=== PATIENT | female | born 1945 | race African-American/Black ===

== ENCOUNTER → 2018-12-13 | Outpatient (CLI) | payer OTHER ==
[~2018-12-13] MED LIST: ALTACE10 M1 PO; AMARYL4 MG PO; COZAAR 50 MG TA50 M2 PO; GLUCOPHAGE500 MG PO; GLUCOSAMINE1000 MG PO; INTEGRA F CAPS1 EACH PO; JANUVIA100 MG PO; LEVEMIR SUBQ; METOCLOPRAMIDE 55 M1 PO; NOVOLOG100 UNIT/1 SUBQ; OMEPRAZOLE40 MG PO; OPTIFLEX-C400 MG PO; SIMVASTATIN20 MG PO; VITAMIN D400 UNI1 PO; VITAMINC500 PO
== END ==
LOC: NUC 08:18
DX: R07.1 Chest pain on breathing (principal); R94.39 Abnormal result of other cardiovascular function study; R55 Syncope and collapse; I10 Essential (primary) hypertension; E78.5 Hyperlipidemia, unspecified; E11.9 Type 2 diabetes mellitus without complications; Z79.4 Long term (current) use of insulin

== ENCOUNTER 2019-10-20 22:30 | Inpatient (IN) | payer OTHER ==
[~2019-10-20] VITALS: Ht 162.6 cm; Wt 70.0 kg
[~2019-10-20 22:30] MED LIST changes: +COZAAR 50 MG TA50 M1 PO; -COZAAR 50 MG TA50 M2 PO
[2019-10-20 22:31] VITALS: BP 174/84
[2019-10-20 23:09] LABS: URINE BILIRUBIN NEGATIVE (Negative); URINE BLOOD NEGATIVE (Negative); URINE CLARITY CLEAR; URINE COLOR YELLOW; URINE GLUCOSE-RANDOM* 3+ (Negative); URINE KETONES NEGATIVE (Negative); URINE LEUKOCYTES-REFLEX NEGATIVE (Negative); URINE NITRITE-REFLEX NEGATIVE (Negative); URINE PROTEIN (DIPSTICK) NEGATIVE (Negative); URINE SPECIFIC GRAVITY 1.015 (1.005-1.035); URINE UROBILINOGEN 0.2 E.U./dl (0.2-1.0)
[2019-10-20 23:24] LABS: MCV 91.9 fL (80.0-100.0)
[2019-10-20 23:25] LABS: ABSOLUTE NEUTROPHILS 4.7 thou/uL (1.4-8.2); BASOPHILS 0.9 % (0.0-2.0); EOSINOPHILS 1.3 % (0.0-3.0); HEMATOCRIT 33.5 % (37.0-47.0); HEMOGLOBIN 10.7 gm/dL (12.0-15.0); LYMPHOCYTES 22.7 % (24.0-44.0); MCH 29.3 pg (26.0-34.0); MCHC 31.9 g/dL (28.0-37.0); MONOCYTES 8.3 % (1.0-8.0); PLATELET COUNT 275 thou/uL (150-400); POLYS 66.8 % (36.0-66.0); RBC 3.64 mil/uL (4.20-5.00); RDW 13.2 % (10.5-14.5)
[2019-10-21] VITALS (7 sets, daily range): BP systolic 132–164; BP diastolic 56–85
[2019-10-21 00:08] LABS: ANION GAP 6 mmol/L (7-16); BUN 30 mg/dL (7-18); CALCIUM 8.4 mg/dL (8.5-10.1); CHLORIDE 103 mmol/L (98-107); CO2 24 mmol/L (21-32); CREATININE 1.4 mg/dL (0.6-1.0); GLUCOSE 286 mg/dL (74-106); SODIUM 133 mmol/L (136-145)
[2019-10-21 00:19] LABS: ALBUMIN 3.2 g/dL (3.4-5.0); LIPASE 168 U/L (73-393); PHOSPHORUS < 0.1 mg/dL (2.5-4.9); SGOT 13 U/L (15-37); SGPT 17 U/L (30-65); TOTAL BILIRUBIN 0.3 mg/dL (<0.1-1.0); TOTAL PROTEIN 6.9 g/dL (6.4-8.2); TROPONIN-I 0.23 ng/mL (<0.06)
[2019-10-21 01:04] LABS: MAGNESIUM 1.8 mg/dL (1.8-2.4)
[2019-10-21] MEDS ORDERED: LEVEMIR FL100 UNIT/2 SUBQ (02:06)
[2019-10-21] MEDS ORDERED: NOVOLOG100 UNIT/1 SUBQ (03:00)
--- NOTE | 2019-10-21 04:46 | NUR ---
RECEIVED REPORT FROM ER NURSE. PT ADMITTED TO CCU. ADMISSION HX AND ASSESSMENT COMPLETED CHARTED. PT C/O FEELING LIKE HER LEGS ARE GOING TO HAVE CRAMPS AGAIN, BUT SHE STATED OVERALL SHE FEELS MUCH BETTER THAN WHEN SHE INTIALLY ARRIVED TO THE ER. VSS. UP W/ SBA TO BTR. IVF INFUSING ORDERED. FALL PRECAUTIONS IN PLACE. PROGRESSING SLOWLY TOWARD POC GOALS.
[2019-10-21 07:07] LABS: HEMATOCRIT 30.8 % (37.0-47.0); HEMOGLOBIN 10.1 gm/dL (12.0-15.0); MCH 30.1 pg (26.0-34.0); MCHC 32.9 g/dL (28.0-37.0); MCV 91.6 fL (80.0-100.0); RBC 3.36 mil/uL (4.20-5.00); RDW 12.7 % (10.5-14.5); WBC 7.8 thou/uL (4.0-11.0)
[2019-10-21 07:18] LABS: ANION GAP 7 mmol/L (7-16); BUN 26 mg/dL (7-18); CALCIUM 8.6 mg/dL (8.5-10.1); CHLORIDE 103 mmol/L (98-107); CHOLESTEROL 131 mg/dL (<200); CO2 25 mmol/L (21-32); CREATININE 1.4 mg/dL (0.6-1.0); GLUCOSE 345 mg/dL (74-106); HDL CHOLESTEROL 52 mg/dL (>40); LDL CHOLESTEROL 69 mg/dL (<100); SODIUM 135 mmol/L (136-145); TC:HDL 2.5 Ratio (Not establshd); TRIGLYCERIDE 53 mg/dL (<150); VLDL 11 mg/dL (<40)
[2019-10-21 07:19] LABS: POTASSIUM 4.3 mmol/L (3.5-5.1)
--- NOTE | 2019-10-21 08:14 | EKG ---
[address] [place] [address] ELECTROCARDIOGRAM REPORT Name: JOSSY HICKMAN Room #: 200-I [facility]..#: [id number] Admission: 10/21/19 Attend Phys: Zoey Fong Discharge: Date of : 41 Report #: [id number] THIS REPORT FOR: //name// [facility] ED Test Date: 2019-10-20 Test Time: 22:55:07 Pat Name: JOSSY HICKMAN Department: Room: 200 Gender: F Campus Ambassador: ABHIJEET : 1945 Requested By: Anmol Ramos Order Number: [id number] MD: Anuj Quiroga Measurements Intervals [place] Rate: 89 P: 53 GA: 197 QRS: 10 QRSD: 80 T: 61 QT: 357 QTc: 435 Interpretive Statements Sinus rhythm Abnormal R-wave progression, early transition Compared to ECG 06/20/2000 11:02:41 No significant changes Electronically Signed On 10-21-2019 8:14:06 METAL TILE LATHER by Anuj Quiroga [email or web address] <ELECTRONICALLY SIGNED> By: Anuj Quiroga MD 10/21/19 0814 2255 Anuj Quiroga MD /ЮЛИЯ
--- NOTE | 2019-10-21 13:15 | 2DMMODE ---
[facility] [address] [place] [address] 2 D/M-MODE ECHOCARDIOGRAM Name: JOSSY HICKMAN Room #: 200-I ADM IN M.R.#: [id number] Admission: 10/21/19 Attend Phys: Zoey Mcdaniel Discharge: Date of : 41 Report #: [id number] THIS REPORT FOR: //name// APPROVED REPORT Study performed: 10/21/2019 09:52:01 EXAM: Comprehensive 2D, Doppler, and color-flow Echocardiogram Patient Location: Bedside Room #: 200 Status: routine BSA: 1.76 HR: 81 bpm BP: 154/70 mmHg Rhythm: NSR Other Information Study Quality: Adequate Risk Factors: Cardiac Risk Factors: HTN, Hyperlipidemia, DM Indications Elevated Troponin 2D Dimensions IVSd: 7.80 (7-11mm) LVOT Diam: 19.00 (18-24mm) LVDd: 35.76 mm PWd: 8.37 (7-11mm) Ascending Ao: 24.35 (22-36mm) LVDs: 27.52 (25-40mm) Aortic Root: 24.22 mm LV Single Plane 4CH: 64.50 % LV Single Plane 2CH: 62.18 % Biplane EF: 61.1 % Volumes Left Atrial Volume (Systole) Single Plane 4CH: 25.72 mL Single Plane 2CH: 42.74 mL LA ESV Index: 21.00 mL/m2 Aortic Valve AoV Peak Ronaldo.: 1.49 m/s AO Peak Gr.: 8.89 mmHg LVOT Max P.30 mmHg LVOT Max V: 1.15 m/s AMI Vmax: 2.09 cm2 [facility] [address] [place] [address] 2 D/M-MODE ECHOCARDIOGRAM Name: JOSSY HICKMAN Room #: 200-I [facility] IN [facility]#: [id number] Admission: 10/21/19 Attend Phys: Zoey Matthews Mar Discharge: Date of : 41 Report #: [id number] Vmax: 3.07 m/s AI Morris: 0.68 m/s2 AI PHT: 1299.81 ms Mitral Valve E/A Ratio: 0.8 MV Decel. Time: 234.14 ms MV E Max Ronaldo.: 0.97 m/s MV A Ronaldo.: 1.20 m/s MV PHT: 67.90 ms IVRT: 69.20 ms TDI E/Lateral E': 13.86 E/Medial E': 13.86 Medial E' Ronaldo.: 0.07 m/s Lateral E' Ronaldo.: 0.07 m/s Pulmonary Valve PV Peak Ronaldo.: 0.83 m/s PV Peak Gr.: 2.73 mmHg Pulmonary Vein P Vein S: 0.61 m/s P Vein A: 0.30 m/s P Vein D: 0.27 m/s P Vein A Dur.: 90.0 msec P Vein S/D Ratio: 2.26 Tricuspid Valve RAP Estimate: 7.00 mmHg Left Ventricle The left ventricle is normal size. There is normal LV segmental wall motion. There is normal left ventricular wall thickness. Left ventricular systolic function is normal. The left ventricular ejection fraction is within the normal range. LVEF is 60%. Mild diastolic dysfunction is present (impaired relaxation pattern). Right Ventricle The right ventricle is normal size. The right ventricular systolic function is normal. Atria The left atrium size is normal. The right atrium size is normal. Aortic Valve The aortic valve is mildly sclerotic Mild aortic regurgitation. There [facility] [address] [place] [address] 2 D/M-MODE ECHOCARDIOGRAM Name: MARYLOUARMICHAEL Room #: 200-I [facility] IN M.R.#: [id number] Admission: 10/21/19 Attend Phys: Zoey Mcdaniel Discharge: Date of : 41 Report #: [id number] is no aortic valvular stenosis. Mitral Valve The mitral valve is normal in structure. There is no mitral valve regurgitation noted. No evidence of mitral valve stenosis. Tricuspid Valve The tricuspid valve is normal in structure. Trace tricuspid regurgitation. Unable to assess PA pressure. Pulmonic Valve The pulmonary valve is normal in structure. There is no pulmonic valvular regurgitation. Great Vessels The aortic root is normal in size. The ascending aorta is normal in size. IVC is normal in size and collapses >50% with inspiration. Pericardium There is no pericardial effusion. <Conclusion> Left ventricular systolic function is normal. There is normal LV segmental wall motion. LVEF is 60%. Mild diastolic dysfunction The aortic valve is mildly sclerotic. Mild aortic regurgitation, no stenosis. The mitral valve is normal in structure. No mitral valve regurgitation. Unable to assess pulmonary artery pressure. There is no pericardial effusion. <ELECTRONICALLY SIGNED> By: Willi Andrews MD, FACC 10/21/19 1314 1314 1314 Willi Andrews MD, FACC /INF
[2019-10-21 14:00] LABS: CALCIUM 8.9 mg/dL (8.5-10.1); CREATININE 1.4 mg/dL (0.6-1.0); MAGNESIUM 1.8 mg/dL (1.8-2.4); PHOSPHORUS 3.1 mg/dL (2.5-4.9); POTASSIUM 4.3 mmol/L (3.5-5.1)
--- NOTE | 2019-10-21 16:45 | NUR ---
PT ALERT AND ORIENTED. VSS. DENIED HAVING PAIN OR DISCOMFORT. EVALUATED BY PT. AMBUALTED X3 IN THE HALLWAY THIS SHIFT. NPO AFTER MIDNIGHT FOR CARDIAC CATH IN AM. CONSENT SIGNED. WILL CONTINUE TO MONITOR.
[2019-10-22] VITALS (15 sets, daily range): BP systolic 67–152; BP diastolic 28–76
[2019-10-22 00:08] LABS: GLYCOHEMOGLOBIN (HGB A1C) 11.5 % (4.8-5.6)
[2019-10-22 04:43] LABS: CALCIUM 9.2 mg/dL (8.5-10.1); CREATININE 1.3 mg/dL (0.6-1.0); POTASSIUM 4.5 mmol/L (3.5-5.1)
--- NOTE | 2019-10-22 04:59 | NUR ---
ASSUMED PT CARE AROUND 1900. PT VSS AND ZERO C/O PAIN, N/V/D. PT UP ADLIB IN ROOM TO TOILET. PT HAS BEEN NPO SINCE MIDNIGHT FOR CATH PROCEDURE 10/22. PT DID NOT SLEEP VERY WELL THRU NIGHT SHE STATED "HER MIND WON'T SHUTDOWN FROM THINKING ABOUT WHAT'S GOING TO HAPPEN" WILL CONTINUE TO MONITOR PT PER POC.
--- NOTE | 2019-10-22 08:40 | HC ---
[facility] [place] [address] CONSULTATION Name: JOSSY HICKMAN Room #: 200-I ADM IN M.R.#: [id number] Admission: 10/21/19 Attend Phys: Asher Steen MD Discharge: Date of : 41 Report #: [id number] THIS REPORT FOR: //name// CC: Zoey Barrientos DATE OF SERVICE: 10/21/2019 ENDOCRINE CONSULTATION NOTE REASON FOR CONSULTATION: Uncontrolled type 2 diabetes mellitus. CONSULTING PHYSICIAN: Dr. Steen. HISTORY OF PRESENT ILLNESS: This is a 74-year-old female patient whose medical background is significant for multiple medical issues including type 2 diabetes mellitus as well as hypertension and hyperlipidemia. The patient presented yesterday late night to the Emergency Department with complaints of diffuse progressive and severe muscle cramps involving her legs, arms, and later on, abdomen and back. The patient was later admitted for further care and monitoring, especially when she was noted to have an elevated potassium of 6 and a slightly elevated troponin as well. The patient notes that she has had longstanding history of type 2 diabetes mellitus and that she is now maintained on insulin therapy, namely utilizing Levemir insulin 20 units q.p.m. in addition to NovoLog insulin taking doses of 17 units t.i.d. a.c. The patient notes that her blood glucose values fluctuate quite widely and that they could get as high as 300 mg/dL, but occasionally be in the low 100s and occasionally in the hypoglycemic range as well. The patient is not aware of issues pertaining to diabetic retinopathy, but she has intermittent issues with diabetic neuropathy. She did not acknowledge having chronic kidney disease that she knows of. She does not have a prior history of CAD. REVIEW OF SYSTEMS: CONSTITUTIONAL: Fatigue, tiredness, but no fever or chills. No major weight changes. HEENT: Negative for sore throat, sinus pain, and ear drainage. PULMONARY: Occasional shortness of breath and cough, but no hemoptysis. CARDIAC: No chest pain, palpitations, syncope or presyncope. GASTROINTESTINAL: Abdominal discomfort, nausea, but no vomiting or major changes in bowel movement frequency. NEUROLOGY: Lightheadedness, dizziness, but no seizure activity or loss of consciousness. MUSCULOSKELETAL: Muscle cramps, diffuse involving both upper and lower extremities as well as back and abdomen. [address] [address] CONSULTATION Name: JOSSY HICKMAN Room #: 200-I ADM IN M.R.#: [id number] Admission: 10/21/19 Attend Phys: Asher Steen MD Discharge: Date of : 41 Report #: [id number] DERMATOLOGY: Negative for ulceration, discoloration rash, or other major changes. PSYCHIATRIC: Negative for delusions or hallucinations. Otherwise, review of systems noncontributory unless mentioned in HPI. PAST MEDICAL HISTORY: 1. Type 2 diabetes mellitus. 2. Hyperlipidemia. 3. Hypertension. 4. Gastroesophageal reflux disease. 5. Anemia. OUTPATIENT MEDICATIONS: 1. Simvastatin. 2. Glucosamine. 3. Omeprazole. 4. Losartan 50 mg daily. 5. NovoLog insulin 11, 17, 11 units before meals. 6. Levemir insulin 20 units q.p.m. 7. Vitamin D 1000 units daily. 8. Iron supplement daily. PAST SURGICAL HISTORY: Rotator cuff surgery and hysterectomy. ALLERGIES: SULFA. FAMILY HISTORY: Noncontributory. SOCIAL HISTORY: The patient denies use of tobacco, alcohol, or illicit drugs. She lives with her . PHYSICAL EXAMINATION: GENERAL: Pleasant -Honduran female patient who is not in apparent pain or distress, sitting comfortably in her reclining chair. VITAL SIGNS: Blood pressure is 132/56 mmHg, heart rate is 78 beats per minute, respirations 17 per minute, temperature 36.7 degrees. CONSTITUTIONAL: The patient appears comfortable, not in apparent distress. HEENT: Anicteric sclerae. Intact extraocular motions. NECK: Supple, without JVD, carotid bruits or lymphadenopathy. I do not appreciate thyromegaly. CHEST: Noted for moderate air entry bilaterally with scattered rales. HEART: Regular rate and rhythm without murmurs or gallops. ABDOMEN: Soft and lax without tenderness. No guarding. Active bowel sounds. LOWER EXTREMITY EXAM: Negative for ankle edema. The patient has good pedal pulses bilaterally. NEUROLOGIC: Awake, alert and oriented to time, place and person. The remainder [address] [address] CONSULTATION Name: JOSSY HICKMAN Room #: 200-I ADM IN M.R.#: [id number] Admission: 10/21/19 Attend Phys: Asher Steen MD Discharge: Date of : 41 Report #: [id number] of examination is nonfocal other than for slight sensory deficits over both feet. PSYCH: Awake, alert, and oriented, pleasant. Normal mood and affect. LABORATORY DATA: Blood glucose on arrival was 323 mg/dL went to 211 and then shortly prior to this dictation, 116 mg/dL. Otherwise, sodium 143, potassium 4.3, chloride 107, CO2 of 26, anion gap 10, BUN 22, creatinine 1.4, lipase 168, total bilirubin 0.3, calcium 8.9, phosphorus 3.1, magnesium 1.8, alkaline phosphatase 117, ALT 17, total protein 6.9, EGFR of 44. Lactic acid 1.7. Total cholesterol 131, triglycerides 53, HDL 52, LDL 69. BNP 91. White blood count 7.8, hemoglobin 10.1, hematocrit 30.8, platelets 265. TSH 1.606. Hemoglobin A1c has been ordered, but is pending. ASSESSMENT AND PLAN: 1. Type 2 diabetes mellitus. As noted above, the patient has a longstanding history of type 2 diabetes mellitus. She has historically dealt with widely fluctuating blood glucose values up until recently. It does not appear that the patient has much in terms of severe diabetic complications, but the current laboratory studies suggest an outlook of chronic kidney disease stage 3, also she has peripheral neuropathy. 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 It is noticeable that the patient presented under conditions of hyperglycemia, but that without having received her usual Levemir dose as she had dropped her blood glucose into the low 100s LDH with the assistance of Humalog supplemental scale coverage. Due to the anticipated limitation of food intake, comfort to her home environment, I will start the patient off with a little lower than usual insulin dose. Namely, I will start the patient on Lantus insulin 14 units q.p.m., in addition to 5 units of Humalog with meals with the supportive Humalog supplemental scale low intensity. I will maintain blood glucose monitoring a.c. and at bedtime and utilizes a blood glucose data to adjust her insulin regimen as needed going forward. A hemoglobin A1c has been ordered and is pending and will certainly help shed more light on her recent level of control. 2. Hyperlipidemia. As per the patient's recently obtained lipid panel, she has been under adequate control. She has been placed on atorvastatin 40 mg at bedtime. I will have her continue with the same. 3. Hypertension. The patient's level of blood pressure control seems to be adequate under the current regimen, she is to continue with the same. [address] [address] CONSULTATION Name: JOSSY HICKMAN Room #: 200-I ADM IN M.R.#: [id number] Admission: 10/21/19 Attend Phys: Asher Steen MD Discharge: Date of : 41 Report #: [id number] I certainly appreciate this consultation by Dr. Steen. <ELECTRONICALLY SIGNED> By: Mine Farrar MD 10/22/19 0840 1708 2238 Mine Farrar MD /nt
[2019-10-22 08:53] LABS: MAGNESIUM 1.7 mg/dL (1.8-2.4); PHOSPHORUS 3.1 mg/dL (2.5-4.9)
--- NOTE | 2019-10-22 10:18 | CATHLAB ---
[place] [address] [facility] [place] [address] INVASIVE PROCEDURE REPORT Name: JOSSY HICKMAN Room #: 200-I ADM IN [facility]#: [id number] Admission: 10/21/19 Attend Phys: Asher Steen, Discharge: Date of : 41 Report #: [id number] THIS REPORT FOR: //name// APPROVED REPORT Study performed: 10/22/2019 07:49:18 Patient Details Patient Status: In-Patient Room #: The patient is a 74 year-old female Event Personnel Toby Killian Softlines Supervisor, Kamila Stern RTR Scrub, Janice Cunningham RTR Scroli, Leonardo Davison personal service workers Performed Left Heart Cath w/or w/o Coronaries [id number] [facility] Indication Non-STEMI , Dyspnea, Chest pain Risk Factors Hypercholesterolemia, Hypertension, Diabetes Procedure Narrative The Right Groin^ was infiltrated with 1% Lidocaine subcutaneous anesthesia. A PINNACLE 4FR Sheath #[id number] sheath was inserted into the RFA^. Coronary angiography was performed using coronary diagnostic catheters. The right coronary system was accessed and visualized with a JR4 catheter. The left coronary system was accessed and visualized with a JL4 catheter. Left ventricular/Aortic Valve gradient assessed via catheter pullback. Hemostasis was obtained with manual pressure following sheath removal without any complications. The patient tolerated the procedure well and there were no complications associated with the procedure. There was no hematoma. Intraoperative Conscious Sedation Sedation start time: 8.00 Case end Time: 8.34 Fentanyl 50 mcg Versed 1 mg Fluoro Time: 2.7 minutes Dose: DAP 2374 cGycm2 656 mGy [facility] [address] [place] [address] INVASIVE PROCEDURE REPORT Name: JOSSY HICKMAN Room #: 200-I ADM IN [facility].#: [id number] Admission: 10/21/19 Attend Phys: Asher Steen, Discharge: Date of : 41 Report #: [id number] Coronary Angiography The patient's coronary anatomy is right dominant. Diagnostic Cath Left Main There is a mild to moderate stenosis in the distal left main, just before the bifurcation. Approximately 30-50%. LAD This is a moderate size caliber vessel, traversing the anterior wall and wrapping around the apex. There is a moderate stenosis in the mid segment, 40%. Diagonal 1 This is a small-caliber vessel, with a moderate stenosis at the ostium, 40%. Circumflex There is a severe occlusion in the mid segment, 70-80%. OM1 This is a moderate size caliber vessel with a high takeoff from the left circumflex artery. There is a moderate stenosis in the proximal segment, 40%. OM2 This is a small-caliber vessel with moderate diffuse disease proximally. OM3 This is a patent vessel, with no flow-limiting lesions. Right Coronary This is a dominant vessel with mild disease in the midsegment, 30%. R PDA This is a small-caliber vessel, patent with no flow-limiting lesions. RPLV This is a small-caliber vessel, patent with no flow-limiting lesions. Left Ventriculography Left Ventriculography was not performed. Ejection Fraction was >55% based off patient's Echocardiogram. An LVEDP was measured and there is no gradient across the outflow tract. Hemodynamics The aortic pressure is 192/84 mmHg with a mean of 127 mmHg. The left ventricular pressure is 191/17 mmHg with a mean of mmHg. The left ventricular end diastolic pressure is 22 mmHg. There was no gradient across the aortic valve upon pullback. Pullback from the left ventricle to the aorta revealed no gradient across the aortic valve. Conclusion 1. There is mild to moderate disease in the left main, LAD and RCA. 2. There is a severe focal stenosis in the mid left circumflex artery. Recommend medical therapy. 3. Normal LV systolic function. [facility] [address] [place] [address] INVASIVE PROCEDURE REPORT Name: JOSSY HICKMAN Room #: 200-I ADM IN M.R.#: [id number] Admission: 10/21/19 Attend Phys: Asher Steen, Discharge: Date of : 41 Report #: [id number] 4. Recommend guideline directed medical therapy and risk factor management. <ELECTRONICALLY SIGNED> By: Toby Killian MD 10/22/19 1018 1018 1018 Toby Killian MD /INF
[2019-10-22] MEDS ORDERED: ASPIR 8181 MG PO (13:23)
[2019-10-22] MEDS ORDERED: TYLENOL325 MG PO (13:23)
[2019-10-22] MEDS ORDERED: METOPROLOL SUCC50 MG PO (13:23)
[2019-10-22] MEDS ORDERED: NOVOLOG100 UNIT/1 SUBQ (13:28)
--- NOTE | 2019-10-22 13:47 | NUR ---
Met with patient, spouse at bedside. Patient tearful she wants to return home but she is hypotensive. Patient reports she lives with spouse in independent home with steps to enter and inside. 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 Patient anticipates dc home once stable. Possible HH care. PCP Dr Ele Barrientos.
[2019-10-22 14:45] LABS: ABSOLUTE NEUTROPHILS 3.8 thou/uL (1.4-8.2); BASOPHILS 1.3 % (0.0-2.0); EOSINOPHILS 1.4 % (0.0-3.0); HEMATOCRIT 28.4 % (37.0-47.0); HEMOGLOBIN 9.3 gm/dL (12.0-15.0); LYMPHOCYTES 33.8 % (24.0-44.0); MCH 29.7 pg (26.0-34.0); MCHC 32.6 g/dL (28.0-37.0); MCV 91.1 fL (80.0-100.0); PLATELET COUNT 243 thou/uL (150-400); POLYS 55.5 % (36.0-66.0); RBC 3.12 mil/uL (4.20-5.00); RDW 12.8 % (10.5-14.5); WBC 6.8 thou/uL (4.0-11.0)
--- NOTE | 2019-10-22 17:32 | NUR ---
ASSESSMENT CHARTED. PT ALERT AND ORIENTED. PT HAD CARDIAC CATH THIS AM. RIGHT GROIN INCISION C/D/I. NO HEMATOMA NOTED. REPORT FEELING DIZZY WITH WALKING. DR. CALVO AND DR. NGUYEN NOTIFIED. WILL CONTINUE TO MONITOR.
--- NOTE | 2019-10-23 03:06 | NUR ---
ASSESSMENTS CHARTED. MEDS GIVEN CHARTED. TOOK OVER CARE OF PATIENT AT 2300. PATIENT RESTING IN ROOM. WAS WOKEN UP FROM SLEEP BY PAIN IN LEFT SHOULDER. MED GIVEN CHARTED. PATIENT WENT TO THE MANAGER REGISTRATION EARLIER, NO INTERVENTIONS WERE DONE. RIGHT GROIN SITE IS SOFT AND INTACT. PLAN OF CARE IS TO ADJUST CARDIAC MEDS DUE TO SYNCOPE. PATIENT MAY GO HOME IN AM AND FOLLOW UP AN OUTPATIENT.
[2019-10-23 05:01] VITALS: BP 122/46
[2019-10-23 05:30] LABS: CALCIUM 9.2 mg/dL (8.5-10.1); CREATININE 1.6 mg/dL (0.6-1.0); MAGNESIUM 1.7 mg/dL (1.8-2.4); POTASSIUM 4.3 mmol/L (3.5-5.1)
[2019-10-23 05:37] LABS: ABSOLUTE NEUTROPHILS 3.9 thou/uL (1.4-8.2); BASOPHILS 0.8 % (0.0-2.0); HEMATOCRIT 28.2 % (37.0-47.0); HEMOGLOBIN 9.1 gm/dL (12.0-15.0); MCH 29.3 pg (26.0-34.0); MCHC 32.3 g/dL (28.0-37.0); MCV 90.9 fL (80.0-100.0); MONOCYTES 7.8 % (1.0-8.0); PLATELET COUNT 234 thou/uL (150-400); POLYS 58.4 % (36.0-66.0); RBC 3.11 mil/uL (4.20-5.00); RDW 12.7 % (10.5-14.5); WBC 6.6 thou/uL (4.0-11.0)
[2019-10-23 07:15] VITALS: BP 120/65
[2019-10-23 11:11] VITALS: BP 129/53
--- NOTE | 2019-10-23 11:21 | NUR ---
ASSUMED CARE OF PT APPROX 0715, A&0X4, UP W/SBA YET AMB STEADY. CARDIAC MONITORED, PT LIVELY IN SPEECH AND SPIRITS AND SAID SHE HOPES SHE GETS LUNCH BEFORE SHE LEAVES WITH SPOUSE WHO'LL PICK HER UP FOR D/C. GOOD APPETITE, SEE SEPARATE INTERVENTIONS FOR ASSESSMENTS. ENCOURAGED HER TO USE CALL LIGHT FOR ANY NEEDS
[2019-10-23 12:05] VITALS: BP 129/53
== END 2019-10-23 14:57 | disposition home or self-care (01) | DRG 281 ==
LOC: ER 22:30 → 2N 10-21 02:07 → EROBS 10-21 02:07 → 2N 10-21 02:43 → ENTRNSPT 10-23 13:59 → EDTRNSPTSTS 10-23 14:03 → 2N 10-23 14:57
PROVIDERS: Emergency Medicine; Internal Medicine Cardiovascular Disease; Nurse Practitioner; ADMIT Internal Medicine
PROC: B2111ZZ Fluoroscopy of Multiple Coronary Arteries using Low Osmolar Contrast (ICD-10-PCS; principal; 2019-10-22)
PROC: 4A023N7 Measurement of Cardiac Sampling and Pressure, Left Heart, Percutaneous Approach (ICD-10-PCS; principal; 2019-10-22)
DX: I25.110 Atherosclerotic heart disease of native coronary artery with unstable angina pectoris (principal); I21.4 Non-ST elevation (NSTEMI) myocardial infarction; N17.9 Acute kidney failure, unspecified; R29.0 Tetany; E11.65 Type 2 diabetes mellitus with hyperglycemia; N18.3 Chronic kidney disease, stage 3 (moderate); E87.5 Hyperkalemia; D64.9 Anemia, unspecified; F41.9 Anxiety disorder, unspecified; E11.22 Type 2 diabetes mellitus with diabetic chronic kidney disease; R06.4 Hyperventilation; I12.9 Hypertensive chronic kidney disease with stage 1 through stage 4 chronic kidney disease, or unspecified chronic kidney disease; K21.9 Gastro-esophageal reflux disease without esophagitis; I95.1 Orthostatic hypotension; E11.42 Type 2 diabetes mellitus with diabetic polyneuropathy; E78.5 Hyperlipidemia, unspecified; K59.00 Constipation, unspecified; M62.838 Other muscle spasm; Z79.4 Long term (current) use of insulin; Z90.710 Acquired absence of both cervix and uterus; Z88.2 Allergy status to sulfonamides; Z79.82 Long term (current) use of aspirin; Z79.899 Other long term (current) drug therapy
CPT/HCPCS: 10081

== ENCOUNTER → 2019-10-31 | Outpatient (CLI) | payer OTHER ==
[~2019-10-31] MED LIST changes: +ASPIR 8181 MG PO; +LEVEMIR FL100 UNIT/2 SUBQ; +METOPROLOL SUCC50 MG PO; +TYLENOL325 MG PO
[2019-10-31 09:04] LABS: CALCIUM 9.6 mg/dL (8.5-10.1); CREATININE 1.6 mg/dL (0.6-1.0); POTASSIUM 5.2 mmol/L (3.5-5.1)
== END ==
LOC: CAT 07:56
PROVIDERS: Internal Medicine Cardiovascular Disease
DX: I25.10 Atherosclerotic heart disease of native coronary artery without angina pectoris (principal)

== ENCOUNTER → 2019-11-27 | Outpatient (CLI) | payer OTHER ==
[~2019-11-27] MED LIST changes: +LIPITOR 40 MG T40 M1 PO; +LOSARTAN POTASS50 MG PO; +TOPROL XL25 MG PO
== END | disposition home or self-care (01) ==
LOC: SJCVC 13:18
DX: I25.10 Atherosclerotic heart disease of native coronary artery without angina pectoris (principal); I10 Essential (primary) hypertension; E78.00 Pure hypercholesterolemia, unspecified; Z79.82 Long term (current) use of aspirin; Z79.4 Long term (current) use of insulin

== ENCOUNTER → 2019-11-27 | Outpatient (CLI) | payer OTHER ==
[~2019-11-27] MED LIST changes: -LIPITOR 40 MG T40 M1 PO; -LOSARTAN POTASS50 MG PO; -TOPROL XL25 MG PO
== END ==
LOC: NUC 08:01 → CV 16:40
DX: R07.1 Chest pain on breathing (principal); E78.5 Hyperlipidemia, unspecified; I25.2 Old myocardial infarction; E11.9 Type 2 diabetes mellitus without complications; R56.9 Unspecified convulsions; Z79.4 Long term (current) use of insulin; Z79.899 Other long term (current) drug therapy; Z88.2 Allergy status to sulfonamides

== ENCOUNTER 2020-01-01 20:06 | Emergency (ER) | payer OTHER ==
[~2020-01-01] VITALS: Ht 157.5 cm; Wt 68.0 kg
[2020-01-01 21:09] LABS: ABSOLUTE NEUTROPHILS 9.7 thou/uL (1.4-8.2); BASOPHILS 0.7 % (0.0-2.0); EOSINOPHILS 1.2 % (0.0-3.0); HEMATOCRIT 37.6 % (37.0-47.0); HEMOGLOBIN 11.9 gm/dL (12.0-15.0); LYMPHOCYTES 17.8 % (24.0-44.0); MCH 29.1 pg (26.0-34.0); MCHC 31.7 g/dL (28.0-37.0); MCV 91.8 fL (80.0-100.0); PLATELET COUNT 206 thou/uL (150-400); POLYS 72.3 % (36.0-66.0); RDW 13.4 % (10.5-14.5); WBC 13.5 thou/uL (4.0-11.0)
[2020-01-01 21:23] LABS: BUN 19 mg/dL (7-18); CALCIUM 9.3 mg/dL (8.5-10.1); CREATININE 1.4 mg/dL (0.6-1.0); GLUCOSE 113 mg/dL (74-106)
[2020-01-01 21:30] LABS: TROPONIN-I <0.06 ng/mL (<0.06)
[2020-01-01 21:53] LABS: ANION GAP 12 mmol/L (7-16); CHLORIDE 104 mmol/L (98-107); CO2 22 mmol/L (21-32); SODIUM 138 mmol/L (136-145)
[2020-01-01 22:19] LABS: URINE BILIRUBIN NEGATIVE (Negative); URINE BLOOD 2+ (Negative); URINE CLARITY CLEAR; URINE COLOR YELLOW; URINE GLUCOSE-RANDOM* 1+ (Negative); URINE KETONES NEGATIVE (Negative); URINE LEUKOCYTES-REFLEX TRACE (Negative); URINE NITRITE-REFLEX NEGATIVE (Negative); URINE PROTEIN (DIPSTICK) 2+ (Negative); URINE UROBILINOGEN 0.2 E.U./dl (0.2-1.0)
[2020-01-01 22:28] LABS: BACTERIA-REFLEX 1-9 Few /HPF (None Seen); CASTS None Seen /LPF (None Seen); CRYSTALS None Seen /LPF (None Seen); SQUAMOUS 0-3 Few /LPF (0-3); URINE RBC 0-2 Rare /HPF (0-2); URINE WBC-REFLEX 0-5 Rare /HPF (0-5)
[2020-01-01] MEDS ORDERED: LOSARTAN POTASS50 MG PO (23:09)
[2020-01-01] MEDS ORDERED: INTEGRA F CAPS1 EACH PO (23:09)
[2020-01-01] MEDS ORDERED: LIPITOR 40 MG T40 M1 PO (23:10)
[2020-01-01] MEDS ORDERED: TOPROL XL25 MG PO (23:10)
[2020-01-02 01:51] VITALS: BP 143/70
== END 2020-01-02 01:30 | disposition home or self-care (01) ==
LOC: ER 20:06
PROVIDERS: Emergency Medicine
DX: E16.2 Hypoglycemia, unspecified (principal); E11.9 Type 2 diabetes mellitus without complications; I10 Essential (primary) hypertension; E78.00 Pure hypercholesterolemia, unspecified; Z90.710 Acquired absence of both cervix and uterus; Z98.890 Other specified postprocedural states

== ENCOUNTER 2020-01-08 01:55 | Emergency (ER) | payer OTHER ==
[~2020-01-08] VITALS: Ht 162.6 cm; Wt 70.3 kg
[~2020-01-08 01:55] MED LIST changes: +LIPITOR 40 MG T40 M1 PO; +LOSARTAN POTASS50 MG PO; +TOPROL XL25 MG PO
[2020-01-08 03:12] LABS: ABSOLUTE NEUTROPHILS 4.5 thou/uL (1.4-8.2); BASOPHILS 0.7 % (0.0-2.0); HEMATOCRIT 32.9 % (37.0-47.0); HEMOGLOBIN 10.5 gm/dL (12.0-15.0); LYMPHOCYTES 20.2 % (24.0-44.0); MCH 29.5 pg (26.0-34.0); MCV 92.2 fL (80.0-100.0); MONOCYTES 7.7 % (1.0-8.0); PLATELET COUNT 322 thou/uL (150-400); POLYS 70.4 % (36.0-66.0); RBC 3.57 mil/uL (4.20-5.00); RDW 13.8 % (10.5-14.5); WBC 6.4 thou/uL (4.0-11.0)
[2020-01-08 03:18] LABS: ANION GAP 6 mmol/L (7-16); BUN 20 mg/dL (7-18); CALCIUM 8.5 mg/dL (8.5-10.1); CHLORIDE 106 mmol/L (98-107); CO2 27 mmol/L (21-32); CREATININE 1.4 mg/dL (0.6-1.0); GLUCOSE 97 mg/dL (74-106); SODIUM 139 mmol/L (136-145)
[2020-01-08 03:28] LABS: ALBUMIN 3.4 g/dL (3.4-5.0); SGOT 18 U/L (15-37); SGPT 23 U/L (30-65); TOTAL BILIRUBIN 0.3 mg/dL (<0.1-1.0); TOTAL PROTEIN 7.6 g/dL (6.4-8.2); TROPONIN-I <0.06 ng/mL (<0.06)
[2020-01-08 03:45] LABS: URINE BILIRUBIN NEGATIVE (Negative); URINE BLOOD 2+ (Negative); URINE CLARITY CLEAR; URINE COLOR YELLOW; URINE GLUCOSE-RANDOM* NEGATIVE (Negative); URINE KETONES NEGATIVE (Negative); URINE LEUKOCYTES-REFLEX NEGATIVE (Negative); URINE NITRITE-REFLEX NEGATIVE (Negative); URINE PROTEIN (DIPSTICK) NEGATIVE (Negative); URINE SPECIFIC GRAVITY 1.015 (1.005-1.035); URINE UROBILINOGEN 0.2 E.U./dl (0.2-1.0)
[2020-01-08 03:58] LABS: BACTERIA-REFLEX 1-9 Few /HPF (None Seen); CASTS None Seen /LPF (None Seen); CRYSTALS None Seen /LPF (None Seen); MUCUS 0-3 Light strn/LPF (None Seen); SQUAMOUS 0-3 Few /LPF (0-3); URINE WBC-REFLEX 0-5 Rare /HPF (0-5)
[2020-01-08 04:36] VITALS: BP 140/71
--- NOTE | 2020-01-08 08:24 | EKG ---
[facility] [place] [address] ELECTROCARDIOGRAM REPORT Name: JOSSY HICKMAN Room #: [facility]#: [id number] Admission: 01/08/20 Attend Phys: Discharge: 01/08/20 Date of : 41 Report #: [id number] THIS REPORT FOR: cc: Ele Barrientos MD, Sequita MD Couchonnal,Anuj Reed MD ~ THIS REPORT FOR: //name// [facility] ED Test Date: 2020-01-08 Test Time: 02:34:49 Pat Name: JOSSY HICKMAN Department: Room: Gender: F Warehouse Person: [facility] : 1945 Requested By: Leander Garcia Order Number: [id number] MD: Anuj Quiroga Measurements Intervals [place] Rate: 67 P: 45 FL: 192 QRS: 11 QRSD: 89 T: 55 QT: 447 QTc: 472 Interpretive Statements Sinus rhythm Abnormal R-wave progression, early transition Compared to ECG 10/20/2019 22:55:07 No significant changes Electronically Signed On 01-08-2020 8:24:02 METAL BONDING HELPER by Anuj Quiroga [email or web address] <ELECTRONICALLY SIGNED> By: Anuj Quiroga MD 01/08/20 0824 0234 0234 Anuj Quiroga MD /EPI
== END 2020-01-08 05:05 | disposition home or self-care (01) ==
LOC: ER 01:55
PROVIDERS: Emergency Medicine
DX: E11.649 Type 2 diabetes mellitus with hypoglycemia without coma (principal); I10 Essential (primary) hypertension; E78.00 Pure hypercholesterolemia, unspecified; Z90.710 Acquired absence of both cervix and uterus; Z98.890 Other specified postprocedural states; Z90.721 Acquired absence of ovaries, unilateral; Z88.2 Allergy status to sulfonamides

== ENCOUNTER → 2020-02-17 | Outpatient (CLI) | payer OTHER ==
[~2020-02-17] VITALS: Ht 165.1 cm; Wt 70.3 kg
[~2020-02-17] MED LIST changes: +ADVIL200 M3 PO; +ASA81BEC PO; +CARAFATE1 GM PO; +GLUCOSAMINE &1 EAC1 PO; +NOVOLOG100 UNIT/M SUBQ
== END | disposition home or self-care (01) ==
LOC: GI 06:28
DX: K92.1 Melena (principal); D64.9 Anemia, unspecified; I10 Essential (primary) hypertension; E11.9 Type 2 diabetes mellitus without complications; Z98.890 Other specified postprocedural states; Z79.899 Other long term (current) drug therapy; Z87.442 Personal history of urinary calculi; Z85.42 Personal history of malignant neoplasm of other parts of uterus; Z79.4 Long term (current) use of insulin; Z98.41 Cataract extraction status, right eye; Z98.42 Cataract extraction status, left eye
CPT/HCPCS: 62110; 62900

== ENCOUNTER → 2020-05-27 | Outpatient (CLI) | payer OTHER | LOC: SJCVC 11:47 | PROVIDERS: ATTEND Internal Medicine Cardiovascular Disease | DX: I25.10 Atherosclerotic heart disease of native coronary artery without angina pectoris (principal); I10 Essential (primary) hypertension; E78.00 Pure hypercholesterolemia, unspecified; K92.1 Melena ==

== ENCOUNTER → 2020-07-29 | Outpatient (CLI) | payer OTHER | LOC: SJCVC 12:05 | PROVIDERS: ATTEND Internal Medicine Cardiovascular Disease | DX: I25.10 Atherosclerotic heart disease of native coronary artery without angina pectoris (principal); I12.9 Hypertensive chronic kidney disease with stage 1 through stage 4 chronic kidney disease, or unspecified chronic kidney disease; E11.22 Type 2 diabetes mellitus with diabetic chronic kidney disease; N18.9 Chronic kidney disease, unspecified; E78.00 Pure hypercholesterolemia, unspecified; E78.5 Hyperlipidemia, unspecified; Z79.82 Long term (current) use of aspirin; Z79.899 Other long term (current) drug therapy; Z79.4 Long term (current) use of insulin ==

== ENCOUNTER → 2021-01-28 | Outpatient (CLI) | payer OTHER | LOC: SJCVCIMAG 09:55 | PROVIDERS: ATTEND Internal Medicine Cardiovascular Disease | DX: I13.10 Hypertensive heart and chronic kidney disease without heart failure, with stage 1 through stage 4 chronic kidney disease, or unspecified chronic kidney disease (principal); E11.22 Type 2 diabetes mellitus with diabetic chronic kidney disease; N18.9 Chronic kidney disease, unspecified; R94.31 Abnormal electrocardiogram [ECG] [EKG]; I25.10 Atherosclerotic heart disease of native coronary artery without angina pectoris; Z79.899 Other long term (current) drug therapy; E78.00 Pure hypercholesterolemia, unspecified; R42 Dizziness and giddiness; Z79.4 Long term (current) use of insulin; E78.5 Hyperlipidemia, unspecified ==

== ENCOUNTER → 2021-05-04 | Outpatient (CLI) | payer OTHER | LOC: SJCVC 09:58 | PROVIDERS: ATTEND Internal Medicine Cardiovascular Disease | DX: I12.9 Hypertensive chronic kidney disease with stage 1 through stage 4 chronic kidney disease, or unspecified chronic kidney disease (principal); I25.10 Atherosclerotic heart disease of native coronary artery without angina pectoris; E78.00 Pure hypercholesterolemia, unspecified; R55 Syncope and collapse; R42 Dizziness and giddiness; R26.89 Other abnormalities of gait and mobility; G62.9 Polyneuropathy, unspecified; I77.9 Disorder of arteries and arterioles, unspecified; N18.9 Chronic kidney disease, unspecified; E11.43 Type 2 diabetes mellitus with diabetic autonomic (poly)neuropathy; E11.22 Type 2 diabetes mellitus with diabetic chronic kidney disease; K31.84 Gastroparesis; F32.9 Major depressive disorder, single episode, unspecified; E78.5 Hyperlipidemia, unspecified; C55 Malignant neoplasm of uterus, part unspecified; Z88.2 Allergy status to sulfonamides; Z79.4 Long term (current) use of insulin; Z79.899 Other long term (current) drug therapy; Z79.82 Long term (current) use of aspirin ==

== ENCOUNTER → 2021-05-11 | Outpatient (CLI) | payer OTHER | LOC: SJCVCIMAG 07:01 | PROVIDERS: ATTEND Internal Medicine Cardiovascular Disease | DX: I25.10 Atherosclerotic heart disease of native coronary artery without angina pectoris (principal); E11.22 Type 2 diabetes mellitus with diabetic chronic kidney disease; I12.9 Hypertensive chronic kidney disease with stage 1 through stage 4 chronic kidney disease, or unspecified chronic kidney disease; N18.9 Chronic kidney disease, unspecified; E78.00 Pure hypercholesterolemia, unspecified; R26.9 Unspecified abnormalities of gait and mobility; E78.5 Hyperlipidemia, unspecified; F32.9 Major depressive disorder, single episode, unspecified; Z79.82 Long term (current) use of aspirin; Z79.4 Long term (current) use of insulin; Z79.899 Other long term (current) drug therapy; Z88.2 Allergy status to sulfonamides ==

== ENCOUNTER → 2021-05-25 | Outpatient (CLI) | payer OTHER ==
[~2021-05-25] VITALS: Ht 162.6 cm; Wt 67.1 kg
[~2021-05-25] MED LIST changes: +ONE DAILY COMP1 EAC1 PO; +ROSUVASTATIN CA20 MG PO
[2021-05-25 10:19] VITALS: BP 146/53
[2021-05-25 10:36] LABS: HEMATOCRIT 28.9 % (37.0-47.0); HEMOGLOBIN 9.4 gm/dL (12.0-15.0); MCH 29.9 pg (26.0-34.0); MCHC 32.6 g/dL (28.0-37.0); MCV 91.8 fL (80.0-100.0); RBC 3.15 mil/uL (4.20-5.00); RDW 13.9 % (10.5-14.5); WBC 6.2 thou/uL (4.0-11.0)
[2021-05-25 10:41] LABS: CALCIUM 8.7 mg/dL (8.5-10.1); CREATININE 1.8 mg/dL (0.6-1.0); POTASSIUM 5.1 mmol/L (3.5-5.1)
--- NOTE | 2021-05-25 14:08 | CATHLAB ---
[facility] [place] [address] INVASIVE PROCEDURE REPORT Name: JOSSY HICKMAN Room #: REG ANTHONY PanKar#: [id number] Admission: 05/25/21 Attend Phys: Toby Killian MD Discharge: Date of : 41 Report #: [id number] THIS REPORT FOR: cc: Ele Barrientos MD, Sequita MD Park,Toby Espinoza MD ~ APPROVED REPORT Study performed: 05/25/2021 11:46:59 Patient Details Patient Status: Out-Patient Room #: The patient is a 75 year-old female Event Personnel Toby Killian Trailer Rental Clerk, Alonso Chin RN RN, Jeane Townsend RTR Monitor, Kam Pope RTR Scrub Procedures Performed Art Access - R femoral artery* Left Heart Cath w/or w/o Coronaries [id number] [facility] Hemostasis with Manual pressure Indication Positive stress test, Chest pain Risk Factors Hypercholesterolemia, Coronary Artery DiseaseHypertension, Diabetes Procedure Narrative The Right Groin^ was infiltrated with 1% Lidocaine subcutaneous anesthesia. A PINNACLE 4FR Sheath #[id number] sheath was inserted into the RFA^. Coronary angiography was performed using coronary diagnostic catheters. The right coronary system was accessed and visualized with a JR4 catheter. The left coronary system was accessed and visualized with a JL4 catheter. The left ventricle was accessed and visualized with a JR4 catheter. Hemostasis was obtained with manual pressure following sheath removal without any complications. The patient tolerated the procedure well and there were no complications associated with the procedure. There was no hematoma. Intraoperative Conscious Sedation Fentanyl 100 mcg No sedation was used. [facility] [address] [place] [address] INVASIVE PROCEDURE REPORT Name: JOSSY HICKMAN Room #: REG Jenni#: [id number] Admission: 05/25/21 Attend Phys: Toby Killian MD Discharge: Date of : 41 Report #: [id number] Fluoro Time: 2.30 minutes Dose: DAP 1629.80 cGycm2 230 mGy Contrast Type and Amount: Visipaque 54 ml Coronary Angiography The patient's coronary anatomy is right dominant. Diagnostic Cath Left Main The left main artery is a large caliber vessel with mild disease distally, 30%. LAD The LAD is a modest sized caliber vessel, traverses the anterior wall and wraps around the apex. There is a moderate stenosis in the proximal segment, 50%. There is mild diffuse disease in the midsegment, 30%. Diagonal 1 This is a small to moderate-sized caliber vessel, with a 50 to 60% stenosis proximally. Diagonal 2 This is a small caliber vessel with a moderate ostial stenosis. Circumflex The left circumflex artery is a moderate-sized caliber vessel, with a moderate stenosis in the midsegment, 50%. OM1 This is a small caliber vessel, with mild diffuse disease proximally. OM2 This is a small to moderate-sized caliber vessel, with no flow-limiting lesions. Right Coronary The RCA is a moderate-sized caliber vessel, with mild disease in the midsegment, 20%. R PDA This is a small to moderate-sized caliber vessel, with no flow-limiting lesions. RPLV This is a small caliber vessel, with no flow-limiting lesions. Left Ventriculography Left Ventriculography was not performed. Ejection Fraction was 55-60% based off patient's Nuclear Cardiac Stress Test. An LVEDP was measured and there is no gradient across the outflow tract. Hemodynamics The aortic pressure is 214/90 mmHg with a mean of 96 mmHg. The left ventricular pressure is 182/9 mmHg with a mean of mmHg. The left ventricular end diastolic pressure is 22 mmHg. Conclusion 1. There are moderate lesions in the proximal LAD and first diagonal arteries. [facility] [address] [place] [address] INVASIVE PROCEDURE REPORT Name: JOSSY HICKMAN Room #: REG [facility]#: [id number] Admission: 05/25/21 Attend Phys: Toby Killian MD Discharge: Date of : 41 Report #: [id number] 2. There is moderate stenosis in the midsegment of the left circumflex artery. 3. There is mild disease in the RCA. 4. There is normal LV systolic function. 5. Recommend guideline directed medical therapy. <ELECTRONICALLY SIGNED> By: Toby Killian MD 05/25/21 1407 140 140 Toby Killian MD /INF
--- NOTE | 2021-05-25 15:13 | NUR ---
pt ambulates with assist of Jeane Townsend. States she continues to be lightheaded. Instructed pt I will check her blood sugar.
--- NOTE | 2021-05-25 15:19 | NUR ---
blood sugar 268. Dr. Killian aware.
--- NOTE | 2021-05-25 15:42 | NUR ---
PT COMPLAINS OF NAUSEA. VSS. SALTINE CRACKERS AND DIET 7-UP OFFERED. PT EATS ONE CRACKER AND TAKES SMALL SIPS OF DRINK DIRECTED.
--- NOTE | 2021-05-25 16:00 | NUR ---
PT STATES NAUSEA IS GONE AND LIGHTHEADEDNESS WHILE WALKING IS GETTING BETTER.
== END | disposition home or self-care (01) ==
LOC: CATH 07:39
PROVIDERS: ATTEND Internal Medicine Cardiovascular Disease
DX: R07.9 Chest pain, unspecified (principal); R94.39 Abnormal result of other cardiovascular function study; I25.10 Atherosclerotic heart disease of native coronary artery without angina pectoris; I10 Essential (primary) hypertension; E11.9 Type 2 diabetes mellitus without complications; E78.00 Pure hypercholesterolemia, unspecified; I25.2 Old myocardial infarction; K21.9 Gastro-esophageal reflux disease without esophagitis; Z98.890 Other specified postprocedural states; Z79.899 Other long term (current) drug therapy; Z79.01 Long term (current) use of anticoagulants; Z87.891 Personal history of nicotine dependence

== ENCOUNTER → 2021-06-09 | Outpatient (CLI) | payer OTHER | LOC: SJCVC 11:33 | PROVIDERS: ATTEND Internal Medicine Cardiovascular Disease | DX: I25.10 Atherosclerotic heart disease of native coronary artery without angina pectoris (principal); E78.00 Pure hypercholesterolemia, unspecified; R42 Dizziness and giddiness; E11.22 Type 2 diabetes mellitus with diabetic chronic kidney disease; I12.9 Hypertensive chronic kidney disease with stage 1 through stage 4 chronic kidney disease, or unspecified chronic kidney disease; N18.9 Chronic kidney disease, unspecified; Z79.899 Other long term (current) drug therapy; Z79.4 Long term (current) use of insulin; Z79.82 Long term (current) use of aspirin ==

== ENCOUNTER → 2021-09-08 | Outpatient (CLI) | payer OTHER | LOC: SJCVC 10:59 | PROVIDERS: ATTEND Internal Medicine Cardiovascular Disease | DX: I12.9 Hypertensive chronic kidney disease with stage 1 through stage 4 chronic kidney disease, or unspecified chronic kidney disease (principal); I25.10 Atherosclerotic heart disease of native coronary artery without angina pectoris; E78.00 Pure hypercholesterolemia, unspecified; N18.9 Chronic kidney disease, unspecified; E78.5 Hyperlipidemia, unspecified; E11.9 Type 2 diabetes mellitus without complications; F32.9 Major depressive disorder, single episode, unspecified; Z88.5 Allergy status to narcotic agent; Z79.82 Long term (current) use of aspirin; Z79.4 Long term (current) use of insulin; Z79.899 Other long term (current) drug therapy ==